=== PATIENT | male | born 1955 | race Caucasian/White ===

== ENCOUNTER 2022-04-12 15:34 | Observation (INO) ==
[2022-04-12] MEDS ORDERED: *HR* Dextrose 50 % in Water (Syg) 50 ML SYRINGE IVP ONE (16:00)
[2022-04-12 16:17] LABS: Basophils # 0.1 K/mcL (0.0-0.2); Basophils % 0.4 %; Eosinophils # 0.2 K/mcL (0.0-0.6); Eosinophils % 1.1 %; Immature Granulocytes % 0.6 % (0-4); Lymphocytes # 0.7 K/mcL (0.6-4.6); Lymphocytes % 5.1 %; Mean Corpuscular Hemoglobin 30.5 pg (28.0-33.3); Mean Corpuscular Volume 87.1 fL (83.0-100.0); Mean Platelet Volume 8.6 fL (9.4-12.4); Monocytes # 0.9 K/mcL (0.0-1.3); Monocytes % 5.9 %; Neutrophils # 12.6 K/mcL (1.6-8.9); Platelet Count 326 K/mcL (140-400); Red Blood Count 4.59 M/mcL (4.19-5.50); Red Cell Distribution Width 12.6 % (11.5-14.5); Segmented Neutrophils % 86.9 %; White Blood Count 14.5 K/mcL (4.3-11.1)
[2022-04-12 16:25] LABS: Prothrombin Time 10.8 Seconds (9.4-12.1)
[2022-04-12 16:27] LABS: Activated Partial Thrombo Time 31.6 Seconds (26.0-36.0)
[2022-04-12 16:36] LABS: Alanine Aminotransferase 20 Units/L (7-52); Albumin 3.3 g/dL (3.5-5.7); Alkaline Phosphatase 87 Units/L (34-104); Aspartate Amino Transferase 21 Units/L (13-39); BUN/Creatinine Ratio 13 (6-26); Bilirubin,Indirect 0.2 mg/dL (0.0-1.0); Bilirubin,Total 0.2 mg/dL (0.3-1.0); Blood Urea Nitrogen 22 mg/dL (8-23); Calcium 8.8 mg/dL (8.6-10.3); Carbon Dioxide 27 mEq/L (23-29); Chloride 103 mEq/L (98-107); Creatine Kinase 64 Units/L (30-223); Ethanol < 10 mg/dL (Less than 10); Globulin 3.2 g/dL (2.4-3.5); Glucose 36 mg/dL (70-105); Osmolality,Calculated 286 (280-300); Potassium 3.1 mEq/L (3.5-5.1); Sodium 138 mEq/L (136-145); Total Protein 6.5 g/dL (6.4-8.9)
[2022-04-12 16:37] LABS: Troponin I 0.19 ng/mL (< 0.04)
[2022-04-12] MEDS ORDERED: Aspirin 325 MG TABLET PO ONE (16:50)
[2022-04-12 16:53] LABS: Thyroid Stimulating Hormone 0.918 mcIU/mL (0.340-5.600)
[2022-04-12] MEDS ORDERED: Naloxone 0.4 MG/ML INJ IVP PRN (18:17)
[2022-04-12] MEDS ORDERED: D5% in Water 1,000 ML IVC PRN (18:24)
[2022-04-12] MEDS ORDERED: Dextrose Gel 15 GM/37.5 ML TUBE PO PRN ×2 (18:24)
[2022-04-12] MEDS ORDERED: *HR* Dextrose 50 % in Water (Syg) 50 ML SYRINGE IVP PRN (18:24)
[2022-04-12] MEDS ORDERED: Acetaminophen 325 MG TABLET PO PRN (18:25)
[2022-04-12] MEDS ORDERED: Insulin LISPRO 300 UNITS/3 ML VIAL SUBQ SCH (21:00)
[2022-04-12] MEDS: carvediloL 6.25 MG TABLET PO SCH (22:11)
[2022-04-12] MEDS: *HR* Heparin 5,000 UNIT/ML VIAL SQ SCH (22:11)
[2022-04-13 06:10] VITALS: RESP 16
[2022-04-13 06:19] LABS: Basophils % 0.6 %; Eosinophils # 0.2 K/mcL (0.0-0.6); Eosinophils % 3.5 %; Hematocrit 39.3 % (37.5-50.1); Hemoglobin 13.2 g/dL (12.9-16.9); Immature Granulocytes % 0.8 % (0-4); Lymphocytes # 1.4 K/mcL (0.6-4.6); Lymphocytes % 20.6 %; Mean Corpuscular HGB Conc 33.6 g/dL (31.6-35.5); Mean Corpuscular Hemoglobin 29.6 pg (28.0-33.3); Mean Corpuscular Volume 88.1 fL (83.0-100.0); Mean Platelet Volume 9.9 fL (9.4-12.4); Monocytes # 0.7 K/mcL (0.0-1.3); Monocytes % 10.7 %; Neutrophils # 4.2 K/mcL (1.6-8.9); Platelet Count 247 K/mcL (140-400); Red Blood Count 4.46 M/mcL (4.19-5.50); Red Cell Distribution Width 12.7 % (11.5-14.5); Segmented Neutrophils % 63.8 %; White Blood Count 6.6 K/mcL (4.3-11.1)
[2022-04-13 06:39] LABS: Calcium 8.7 mg/dL (8.6-10.3); Magnesium 1.9 mg/dL (1.6-2.6); Potassium 3.4 mEq/L (3.5-5.1)
[2022-04-13] MEDS: *HR* Heparin 5,000 UNIT/ML VIAL SQ SCH ×2 (06:54→15:10)
[2022-04-13] MEDS ORDERED: carvediloL 6.25 MG TABLET PO SCH (08:00)
[2022-04-13] MEDS: Insulin LISPRO 300 UNITS/3 ML VIAL SUBQ SCH ×2 (08:28→12:34)
[2022-04-13] MEDS: carvediloL 6.25 MG TABLET PO SCH (08:28)
[2022-04-13] MEDS ORDERED: Multivit/Ca/Min/Fe/FA 1 TAB TABLET PO SCH (09:00)
[2022-04-13] MEDS ORDERED: Metoprolol XL (24 HR) Succ 50 MG TAB.ER.24H PO SCH (09:00)
[2022-04-13] MEDS ORDERED: Vitamin E 200 UNIT (90MG) CAPSULE PO SCH (09:00)
[2022-04-13] MEDS ORDERED: NIFEdipine XL (24 HR) 30 MG TAB.ER.24 PO SCH (09:00)
[2022-04-13] MEDS ORDERED: Furosemide 20 MG TABLET PO SCH (09:00)
[2022-04-13 11:26] VITALS: BP 153/88; PULSE 83; TEMP 98; O2SAT 97
== END 2022-04-13 15:40 | disposition home or self-care (01) ==
LOC: EMEROOPIK 15:34 → INPPIK 15:34
PROVIDERS: ADMIT Internal Medicine; ATTEND Internal Medicine